=== PATIENT | male | born 1990 | race Caucasian/White ===

== ENCOUNTER 2018-05-18 11:25 | Day surgery (SDC) | payer BC ==
[2018-05-18] MEDS ORDERED: SEVOFLURANE 250 ML INH ONE (11:26)
[2018-05-18] MEDS ORDERED: LIDOCAINE 2% MDV (20MG/ML) 20ML VIAL IV ONE (11:26)
[2018-05-18] MEDS ORDERED: KETOROLAC 30 MG/ML VIAL IVP ONE (11:26)
[2018-05-18] MEDS ORDERED: MIDAZOLAM HCL 2MG/2ML VIAL IV ONE (11:26)
[2018-05-18] MEDS ORDERED: SUFENTANIL CITRATE 50 MCG/ML AMPUL IV ONE (11:26)
[2018-05-18] MEDS ORDERED: HYDROMORPHONE HCL 2 MG/ML VIAL IV ONE (11:26)
[2018-05-18] MEDS ORDERED: ACETAMINOPHEN 1,000 MG/100 ML BTL IV ONE (11:26)
[2018-05-18] MEDS ORDERED: ONDANSETRON HCL IV 4 MG/2 ML VIAL IVP ONE (11:26)
[2018-05-18] MEDS ORDERED: PROPOFOL 10 MG/ML VIAL IV ONE (11:26)
[2018-05-18] MEDS ORDERED: FENTANYL PF 100MCG/2ML VIAL IV ONE (11:26)
[2018-05-18] MEDS ORDERED: ROPIVACAINE HCL (NAROPIN) /PF 5MG/ML 20ML VIAL IV ONE (11:26)
[2018-05-18] MEDS ORDERED: DEXAMETHASONE 4 MG/ML 1ML VIAL IVP ONE ×2 (11:26)
[2018-05-18] MEDS ORDERED: CEFAZOLIN 2 Gram 2 GM/50 ML BAG IVPB ONE (11:26)
--- NOTE | 2018-05-30 15:45 | Operative Note ---
DATE OF SURGERY: 05/18/2018 Surgeon: Temo Harvey DO PREOPERATIVE DIAGNOSIS: Lateral tibial plateau fracture of the left knee. POSTOPERATIVE DIAGNOSIS: Lateral tibial plateau fracture of the left knee. OPERATION: Open reduction and internal fixation of lateral tibial plateau, left knee. DESCRIPTION OF PROCEDURE: This 27-year-old male was taken to the operating room and placed in the supine position on the operating room table. A bump was placed underneath the left hip after general anesthesia was induced. The left lower extremity was elevated. It was prepped with Hibiclens and draped in the usual sterile fashion. It was exsanguinated and the tourniquet inflated to 300 mmHg. A hockey stick-type incision was made. Anterior approach was used dissecting down through the skin and subcutaneous tissue, retracting the tensor anteriorly to expose the lateral aspect of the joint. Blunt and sharp dissection was carried down to the proximal tibial plateau fracture. The tibialis anterior was elevated off to expose the fracture site. The fracture appeared to be approximately 0.75 cm and this was irrigated with lactated Ringer's solution removing clot and debris from the fracture site. In addition, a small puncture was made in the joint capsule and the hematoma evacuated. We also irrigated the inside of the joint and completely suctioned it removing the fluid from the joint. This was then repaired at the completion of the procedure. A small 0.5 cm incision was made. The fracture site easily identified and we could see that there had been significant compression, at least a centimeter, of the bone in the center of the weightbearing surface. We were easily able to elevate this to its anatomic position but to hold this in place, it was necessary for us to place allograft into the void filled by elevating the compressed bone. A 15-mL vial of bone was used. Approximately 10 mL of the 15 was used to pack into the defect. Once we felt we could not get any more bone in, we then placed a guidewire across the tibia under the guidance of the image intensifier. Subsequently, a 7.3 mm cannulated screw was placed across the fracture site after it had been compressed and reduced. A second pin was placed parallel to it and this gave us excellent compression at the fracture site. A third screw was placed obliquely from caudad-cephalad to secure the bone in place. We did not feel that an anti-glide plate was necessary. The wound was then copiously irrigated with lactated Ringer's solution. The image intensifier confirmed satisfactory position and alignment in the anterior-posterior and medial-lateral planes. The tensor was then reapproximated. The fascia was closed. The subcutaneous tissue closed with 0 Vicryl and the skin was stapled. Sterile dressings were applied with a knee immobilizer and the patient was taken to the recovery room in satisfactory condition. GROSS PATHOLOGY: This patient demonstrated a depressed vertical tibial plateau fracture involving the small margin of the articular surface. Once the depressed fracture fragments had been elevated, we were able to pack bone graft underneath it to support it in place. RALF
== END 2018-05-18 16:35 | disposition home or self-care (01) ==
LOC: SUR 11:25
PROVIDERS: ATTEND Orthopaedic Surgery
DX: S82.122A Displaced fracture of lateral condyle of left tibia, initial encounter for closed fracture (principal)
CPT/HCPCS: 27535; 01392; 64447; 76000; J1885; J2405; J3010; J1170; J0690; J2795; 76942; C1762